=== PATIENT | male | born 1980 | race Caucasian/White ===

== ENCOUNTER 2017-07-10 10:48 | Inpatient (IN) | payer OTHER ==
[~2017-07-10] VITALS: Ht 180.3 cm; Wt 60.1 kg
[~2017-07-10 10:48] MED LIST: ATARAX,VISTARIL50 MG PO; ZOFRAN4 MG PO
[2017-07-10 12:25] VITALS: BP 103/58
[2017-07-10 13:44] LABS: BASO % 0.4 % (0.0-1.0); EOS # 0.2 10*3/uL (0.0-0.4); EOS % 2.9 % (1.0-4.0); HEMATOCRIT 38.7 % (42.0-52.0); LYMPH # 1.6 10*3/uL (1.3-4.4); LYMPH % 29.2 % (27.0-41.0); MEAN CELL VOLUME 82.5 fl (80.0-94.0); MEAN CORPUSCULAR HGB 25.6 pg (27.0-31.0); MEAN PLATELET VOLUME 10.2 fl (9.6-12.3); MONO # 0.5 10*3/uL (0.1-1.0); NEUT # 3.2 10*3/uL (2.3-7.9); NEUT % 58.3 % (47.0-73.0); PLATELET COUNT AUTOMATED 191 10*3/uL (130-400); RED BLOOD COUNT 4.69 10*6/uL (4.50-5.90); RED CELL DISTRI WIDTH 17.1 % (0-14.5); WHITE BLOOD COUNT 5.5 10*3/uL (4.8-10.8)
[2017-07-10 13:53] LABS: BILIRUBIN NEGATIVE (NEGATIVE); BLOOD NEGATIVE (NEGATIVE); CLARITY CLEAR (CLEAR); COLOR YELLOW (YELLOW); GLUCOSE NEGATIVE (NEGATIVE); KETONE NEGATIVE (NEGATIVE); LEUKO ESTERASE NEGATIVE (NEGATIVE); NITRITE NEGATIVE (NEGATIVE); PH 5.5 (5.0-9.0); SPECIFIC GRAVITY 1.025 (1.005-1.030); UROBILINOGEN 0.2 E.U./dl (0.2-1.0)
[2017-07-10 13:57] LABS: ALBUMIN 3.4 gm/dl (3.1-4.5); ALKALINE PHOSPHATASE 120 U/L (45-117); BUN 12 mg/dl (7-24); CHLORIDE 108 mmol/L (98-107); SGOT/AST 13 IU/L (3-35); SGPT/ALT 31 U/L (12-78); SODIUM 142 mmol/L (136-145); TOTAL PROTEIN 7.3 gm/dL (6.4-8.2)
[2017-07-10 13:59] LABS: ETHYL ALCOHOL < 3.0 mg/dl (<3)
[2017-07-10 14:01] LABS: URINE AMPHETAMINES < 1000 (1000ng/ml); URINE BARBITURATES < 200 (200ng/ml); URINE BENZODIAZEPINES < 200 (200ng/ml); URINE CANNABINOIDS (THC) > 50 (50ng/ml); URINE COCAINE > 300 (300ng/ml); URINE METHADONE < 300 (300ng/ml); URINE OPIATES > 300 (300ng/ml)
[2017-07-10 14:04] LABS: URINE PHENCYCLIDINE < 25 (25ng/ml)
[2017-07-10 14:09] LABS: BACTERIA TRACE; RBC 0-2 rbc/hpf (0-2); WBC 0-2 wbc/hpf (0-5)
[2017-07-10 16:00] VITALS: BP 110/62
[2017-07-10 20:00] VITALS: BP 109/53
[2017-07-11 00:04] VITALS: BP 100/59
[2017-07-11 03:54] VITALS: BP 100/56
[2017-07-11 08:00] VITALS: BP 100/61
[2017-07-11 12:00] VITALS: BP 107/52
[2017-07-11 16:00] VITALS: BP 97/60
[2017-07-11 20:00] VITALS: BP 109/65
[2017-07-12] VITALS: BP 107/50
[2017-07-12 08:00] VITALS: BP 103/58
[2017-07-12 12:00] VITALS: BP 110/60
== END 2017-07-12 13:41 | disposition left against medical advice (07) | DRG 894 ==
LOC: LAB 10:48 → 4E 10:49 → EDSTATUS 10:49 → 4E 14:11
PROVIDERS: Internal Medicine
DX: F11.23 Opioid dependence with withdrawal (principal); D64.9 Anemia, unspecified; F14.10 Cocaine abuse, uncomplicated; R73.9 Hyperglycemia, unspecified; R00.1 Bradycardia, unspecified; I72.9 Aneurysm of unspecified site; J45.998 Other asthma; Z53.21 Procedure and treatment not carried out due to patient leaving prior to being seen by health care provider; F12.10 Cannabis abuse, uncomplicated; Z98.2 Presence of cerebrospinal fluid drainage device; Z71.6 Tobacco abuse counseling; Z72.0 Tobacco use; Z91.013 Allergy to seafood